=== PATIENT | male | born 1990 | race Caucasian/White ===

== ENCOUNTER 2018-07-11 16:15 | Emergency (ER) | payer SELFPAY ==
[2018-07-11 17:27] VITALS: O2SAT 100
--- NOTE | 2018-07-11 18:49 | ED PDOC ---
HPI: General Adult Time Seen by Provider: 07/11/18 18:47 Chief Complaint (Nursing): Back Pain Chief Complaint (Provider): neck pain History Per: Patient (27 y/o male here with neck pain noted after lifting objects at work. Took motrin 400mg at noon without relief. No falls noted.) Past Medical History Reviewed: Historical Data, Nursing Documentation, Vital Signs Vital Signs: Last Vital Signs Temp 98.3 F 07/11/18 17:23 Pulse 65 07/11/18 17:23 Resp 16 07/11/18 17:23 BP 146/80 07/11/18 17:23 Pulse Ox 100 07/11/18 17:23 - Family History Family History: States: Unknown Family Hx - Immunization History Hx Tetanus Toxoid Vaccination: No Hx Influenza Vaccination: Yes Hx Pneumococcal Vaccination: No - Home Medications Home Medications: Ambulatory Orders Medication Instructions Recorded Tobramycin 0.3% [Tobramycin 5 Ml] 1 drop OP Q6 #1 bottle 07/12/16 Benzonatate [Tessalon Perles] 100 mg PO BID PRN #15 sgl 07/15/16 Dexamethasone/Tobramycin [Tobradex 1 drop OU Q6 #1 bottle 07/15/16 0.1%-0.3% 2.5 Ml] Naproxen [Naprosyn Tab] 375 mg PO BID PRN #15 tab 07/15/16 Azithromycin [Zithromax] 250 mg PO DAILY #6 tab 09/04/17 Naproxen 375 mg PO Q8 PRN #21 tablet 07/11/18 diaZEpam [Valium] 5 mg PO Q8 PRN #4 tab 07/11/18 - Allergies Allergies/Adverse Reactions: Allergies Allergy/AdvReac Type Severity Reaction Status Date / Time No Known Allergies Allergy Verified 07/11/18 17:24 Review of Systems ROS Statement: Except As Marked, All Systems Reviewed And Found Negative Musculoskeletal: Positive for: Neck Pain Physical Exam - Reviewed Nursing Documentation Reviewed: Yes Vital Signs Reviewed: Yes - Physical Exam Appears: Positive for: Well, Non-toxic, No Acute Distress Head Exam: Positive for: ATRAUMATIC, NORMAL INSPECTION, NORMOCEPHALIC Skin: Positive for: Normal Color, Warm, DRY Eye Exam: Positive for: EOMI, Normal appearance, PERRL ENT: Positive for: Normal ENT Inspection Neck: Positive for: Painless ROM. Negative for: Normal (no vertebral tenderness. Pain noted with movement of neck) Cardiovascular/Chest: Positive for: Regular Rate, Rhythm Respiratory: Positive for: CNT, Normal Breath Sounds Gastrointestinal/Abdominal: Positive for: Normal Exam, Soft Back: Positive for: Normal Inspection Extremity: Positive for: Normal ROM Neurologic/Psych: Positive for: Alert, Oriented - ECG O2 Sat by Pulse Oximetry: 100 - Progress ED Course And Treament: Toradol 30 mg IM x dose Disposition - Clinical Impression Clinical Impression: Neck muscle strain - Patient ED Disposition Is Patient to be Admitted: No - Disposition Referrals: [facility] [Outside] Disposition: Routine/Home Disposition Time: 18:50 Condition: FAIR Prescriptions: diaZEpam [Valium] 5 mg PO Q8 PRN #4 tab PRN Reason: Muscle Spasm Naproxen 375 mg PO Q8 PRN #21 tablet PRN Reason: Pain, Moderate (4-7) Instructions: Neck Sprain (DC) Forms: [facility] ED School/Work Excuse
[2018-07-11 20:01] VITALS: BP 122/70; PULSE 72; RESP 18; TEMP 98
== END 2018-07-11 20:00 | disposition home or self-care (01) ==
LOC: H.ER 16:15
DX: S16.1XXA Strain of muscle, fascia and tendon at neck level, initial encounter (principal); X50.9XXA Other and unspecified overexertion or strenuous movements or postures, initial encounter; Y99.0 Civilian activity done for income or pay
CPT/HCPCS: 96372; 99283; J1885